=== PATIENT | male | born 2000 | race Caucasian/White ===

== ENCOUNTER 2022-12-18 14:06 | Emergency (ER) | payer OTHER ==
[~2022-12-18] VITALS: Ht 175.3 cm; Wt 80.0 kg
[2022-12-18 14:10] VITALS: BP 102/65
[2022-12-18] MEDS ORDERED: AMOX-117 PO (14:41)
== END 2022-12-18 14:48 | disposition home or self-care (01) ==
LOC: ER 14:07
DX: S61.253A Open bite of left middle finger without damage to nail, initial encounter (principal); W55.01XA Bitten by cat, initial encounter; Y93.89 Activity, other specified; Y92.89 Other specified places as the place of occurrence of the external cause; Y99.8 Other external cause status
CPT/HCPCS: 99283